=== PATIENT | female | born 1965 | race Caucasian/White ===

== ENCOUNTER 2022-06-09 15:18 | Emergency (ER) | payer OTHER, BC ==
[~2022-06-09] VITALS: Ht 162.6 cm; Wt 89.4 kg
[2022-06-09] MEDS ORDERED: CEPHALEXIN500 M1 PO (17:26)
== END 2022-06-09 17:35 | disposition home or self-care (01) ==
LOC: ED 15:18
DX: S62.637A Displaced fracture of distal phalanx of left little finger, initial encounter for closed fracture (principal); W22.8XXA Striking against or struck by other objects, initial encounter; Z23 Encounter for immunization; Z88.0 Allergy status to penicillin
CPT/HCPCS: 12001; 73140; 90471; 90715; 99283-25